=== PATIENT | male | born 1990 | race Asian ===

== ENCOUNTER 2016-12-13 17:44 | Inpatient (IN) | payer MEDICAID ==
[~2016-12-13] VITALS: Ht 157.5 cm; Wt 68.0 kg
[~2016-12-13 17:44] MED LIST: ALLOPURINOL100 MG PO; ATI0.5 PO; LEVOTHYROXINE0.05 M2 PO; LORAZEPAM1 MG PO; SER25 PO
[2016-12-13 20:50] LABS: BASOPHIL % 0.5 % (0-2); PLATELET COUNT 212 x10^3mcL (130-400)
[2016-12-13 20:55] LABS: CALCIUM 8.8 mg/dL (8.5-10.1); CARBON DIOXIDE 27.5 mmol/L (21-32); CHLORIDE SERUM 105 mmol/L (98-107); CREATININE SERUM 1.1 mg/dL (0.7-1.3); GFR1 > 60 mL/min; GLUCOSE SERUM 101 mg/dL (74-106); POTASSIUM SERUM 3.8 mmol/L (3.5-5.1); SODIUM SERUM 140 mmol/L (136-145)
[2016-12-13 20:57] LABS: RED CELL DISTRIBUTION WIDTH 14.7 % (11.5-14.5)
[2016-12-13 21:00] LABS: ALBUMIN 3.7 g/dL (3.4-5.0); ALKALINE PHOSPHATASE 67 U/L (46-116); ALT/SGPT 68 U/L (16-63); AST/SGOT 26 U/L (15-37); BILIRUBIN TOTAL 0.41 mg/dL (0.20-1.00); TOTAL PROTEIN, SERUM 7.2 g/dL (6.4-8.2)
[2016-12-14 01:11] VITALS: BP 93/46
[2016-12-14 01:50] LABS: T3 TOTAL 0.97 ng/mL
[2016-12-14 01:57] LABS: FREE T4 0.93 ng/dL (0.76-1.46); FREE THYROXINE INDEX 2.1 ug/dL (1.4-4.5); T4(THYROXINE) 6.2 ug/dL (4.7-13.3)
[2016-12-14 01:58] LABS: PHOSPHOROUS 4.2 mg/dL (2.5-4.9)
[2016-12-14 02:06] LABS: CHOLESTEROL/HDL RATIO 4.7
[2016-12-14 02:23] LABS: microscopic required? NO
[2016-12-14 02:30] LABS: PLATELET COUNT 202 x10^3mcL (130-400); RED CELL DISTRIBUTION WIDTH 14.1 % (11.5-14.5)
[2016-12-14 02:33] LABS: BASOPHIL % 2.3 % (0-2)
[2016-12-14 02:36] LABS: urine erythrocyte NEGATIVE (NEGATIVE)
[2016-12-14 03:03] LABS: AMPHETAMINE QUAL UR NONE DETECTED (NEG <=1000)
[2016-12-14 06:34] LABS: BASOPHIL % 0.9 % (0-2); PLATELET COUNT 211 x10^3mcL (130-400)
[2016-12-14 06:38] LABS: RED CELL DISTRIBUTION WIDTH 15.1 % (11.5-14.5)
[2016-12-14 06:52] LABS: CALCIUM 8.7 mg/dL (8.5-10.1); CARBON DIOXIDE 26.2 mmol/L (21-32); CHLORIDE SERUM 104 mmol/L (98-107); GFR1 > 60 mL/min; GLUCOSE SERUM 91 mg/dL (74-106); POTASSIUM SERUM 3.4 mmol/L (3.5-5.1); SODIUM SERUM 140 mmol/L (136-145)
[2016-12-14 07:57] VITALS: BP 103/57
[2016-12-14 12:48] VITALS: BP 112/61
[2016-12-14 14:16] VITALS: BP 103/53
[2016-12-14 17:56] VITALS: BP 101/57
[2016-12-14 21:07] VITALS: Ht 157.5 cm; Wt 68.0 kg
[2016-12-14 21:55] VITALS: BP 99/63
[2016-12-15 06:45] LABS: CALCIUM 9.3 mg/dL (8.5-10.1); CARBON DIOXIDE 29.1 mmol/L (21-32); CHLORIDE SERUM 105 mmol/L (98-107); CREATININE SERUM 1.1 mg/dL (0.7-1.3); GFR1 > 60 mL/min; GLUCOSE SERUM 84 mg/dL (74-106); MAGNESIUM 2.4 mg/dL (1.8-2.4); PHOSPHOROUS 4.5 mg/dL (2.5-4.9); POTASSIUM SERUM 3.9 mmol/L (3.5-5.1); SODIUM SERUM 143 mmol/L (136-145)
[2016-12-15 06:52] VITALS: BP 103/67
[2016-12-15 07:55] LABS: BASOPHIL % 0.7 % (0-2); PLATELET COUNT 197 x10^3mcL (130-400)
[2016-12-15 08:16] LABS: RED CELL DISTRIBUTION WIDTH 15.3 % (11.5-14.5)
[2016-12-15 10:20] VITALS: BP 102/52
[2016-12-15 11:58] VITALS: BP 102/52
== END 2016-12-15 15:00 | disposition home or self-care (01) | DRG 254 ==
LOC: ED 17:44 → MU 22:00 → DU 22:00 → MU 12-15 08:02
PROVIDERS: Emergency Medicine; Family Medicine; Internal Medicine Gastroenterology; ADMIT Family Medicine
PROC: 0DJD8ZZ Inspection of Lower Intestinal Tract, Via Natural or Artificial Opening Endoscopic (ICD-10-PCS; principal; 2016-12-15 08:15)
DX: K64.8 Other hemorrhoids (principal); E03.9 Hypothyroidism, unspecified; E87.6 Hypokalemia; Q90.9 Down syndrome, unspecified; F71 Moderate intellectual disabilities; M10.9 Gout, unspecified; E78.5 Hyperlipidemia, unspecified; F41.9 Anxiety disorder, unspecified; Z68.27 Body mass index [BMI] 27.0-27.9, adult
CPT/HCPCS: 45378; 80307; 83880; 84439; J1200; J1610; J2250; J2310; J2765; J3010; J3490; J7030; Q0092

== ENCOUNTER 2019-11-03 22:58 | Emergency (ER) | payer MEDICAID ==
[~2019-11-03] VITALS: Ht 152.4 cm; Wt 68.5 kg
[~2019-11-03 22:58] MED LIST changes: +LOMOTIL1 TAB PO
[2019-11-03 23:04] VITALS: Ht 152.4 cm; Wt 68.5 kg
[2019-11-04 02:02] VITALS: BP 121/65
== END 2019-11-04 02:02 | disposition home or self-care (01) ==
LOC: ED 22:58
DX: K29.70 Gastritis, unspecified, without bleeding (principal); M10.9 Gout, unspecified; E03.9 Hypothyroidism, unspecified; Z88.1 Allergy status to other antibiotic agents; Z88.2 Allergy status to sulfonamides
CPT/HCPCS: Q0162